=== PATIENT | female | born 1995 | race African-American/Black ===

== ENCOUNTER 2017-02-20 11:39 | Emergency (ER) | payer MEDICAID ==
[~2017-02-20] VITALS: Ht 149.9 cm; Wt 46.7 kg
[2017-02-20 11:50] VITALS: BP 160/108
[2017-02-20] MEDS ORDERED: Sodium Chloride 500ML 500 ML IVPB ONE (12:00)
--- NOTE | 2017-02-20 12:01 | Emergency Room Report ---
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 Patient states that she was hospitalized for palpitations and cyclic vomiting at [facility], at that time they did a CAT scan and she was not told of any abnormalities. Patient states that she was discharged to a facility which has one nurse (not necessarily a rehabilitation center), and states that she has had persistent nausea vomiting. Chest pain, left-sided, radiation to left hand , intermittently, lasting 5-10 minutes, associated with shortness of breath. Denies any fever or chills. Complains of epigastric abdominal pain. Patient also states that she has had DVT many years ago, is currently not in anticoagulation States that her symptoms is more so epigastric pain and intractable nausea Stated that she had been bedbound at [facility] but then was ambulatory, she states that she also had a CT of her chest done and they did not report any clots (Tahmina Vasquez M.D.) Allergies: Coded Allergies: AMOXICILLIN (Verified Allergy, Unknown, 02/20/17) PENICILLINS (Verified Allergy, Unknown, 02/20/17) Uncoded Allergies: ADHESIVE TAPE (Allergy, Unknown, 02/20/17) Patient History Past Medical History: see triage record Past Surgical History: none Pertinent Family History: none Last Menstrual Period: 01/24/17 Now: No : 1 Para: 0 Reviewed Nursing Documentation: PMH: Agreed, PSxH: Agreed (Tahmina Vasquez M.D. 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 Hx Gastrointestinal Problems: Yes - sickling vomiting (Tahmina Vasquez M.D.) Review of Systems All Other Systems: negative except mentioned in HPI (Tahmina Vasquez M.D.) Physical Exam Vital Signs Date Time Temp Pulse Resp B/P (MAP) Pulse Ox O2 Delivery O2 Flow Rate FiO2 02/20/17 11:27 98.1 138 20 158/81 94 Nasal Cannula 4.0 Sp02 EP Interpretation: reviewed, normal General Appearance: alert, GCS 15, non-toxic, mild distress Head: normocephalic, atraumatic Eyes: bilateral eye normal inspection, bilateral eye PERRL, bilateral eye EOMI ENT: normal ENT inspection, normal pharynx, normal voice, moist mucus membranes Neck: normal inspection, full range of motion, supple Respiratory: normal inspection, lungs clear, normal breath sounds, no respiratory distress, no retraction, no wheezing, speaking full sentences, chest symmetrical Cardiovascular #1: no edema, normal capillary refill, tachycardia Cardiovascular #2: 2+ radial (R), 2+ radial (L) Gastrointestinal: soft, non-distended, no guarding, other - Epigastric tenderness no guarding or rigidity Musculoskeletal: normal inspection, back normal, normal range of motion, non- tender Neurologic: normal inspection, alert, oriented x3, responsive, motor strength/ tone normal, sensory intact, normal gait, speech normal Psychiatric: normal inspection, judgement/insight normal, memory normal Skin: normal inspection, normal color, no rash, warm/dry, well hydrated, normal turgor (Retino,Clairose M.D.) Medical Decision Making Diagnostic Impression: Primary Impression: Chest pain Additional Impressions: Intractable nausea and vomiting Dyspnea ER Course 21-year-old female, 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 CHF vs. pneumonia vs. gastritis/GERD vs. gastroenteritis versus UTI At this time patient's abdomen is soft nontender nondistended will hold CAT scan at this time. Patient also had a recent CAT scan within the last 2 weeks at [facility] which patient was told there was no acute pathology Plan: IV access, obtain labs including troponin, EKG, CXR Zofran, a small IV fluid bolus ANTICIPATE TRANSFER TO [facility] ER course: Patient has remained tachycardic during ED stay, metoprolol 25 mg by mouth given Troponin is negative Chest x-ray is negative for pulmonary edema Patient states her baseline O2 sat is high 80s low 90s it has been around 92 I discussed with Nicolette Villagomez, nurse from [facility], working closely with with the patient's case, stated that she is currently finding a bed for patient to be transferred Disposition: Patient requires transfer to [facility] for higher level of care Due to patient's history and comorbidities, patient has increased risk of acute cardiac event. . Please note that this Emergency Department Report was dictated using [employer] musical instruments technology software, occasionally this can lead to erroneous entry secondary to interpretation by the dictation equipment. EKG Diagnostic Results EP Interpretation: Yes Rate: Tachycardic Rhythm: NSR ST Segments: T-wave inversions noted in 1 and aVL, left ventricular hypertrophy ASA given to patient: No Rhythm Strip EP Interpretation: Yes Rate: 130 Rhythm: NSR, no PVCs, no ectopy Chest X-ray CXR: Ordered: Yes 1 view Indication: Chest pain EP interpretation: Yes Interpretation: Status post postsurgical changes, no gross cardiomegaly, no pulmonary vascular congestion Impression: No acute disease Electronically signed by Tahmina Vasquez MD Signed out patient to Dr. Glass 21 yo F with ?hypoplastic L heart multiple surgeries p/w intractable nausea/ cycling vomiting recent DC from [facility] to be transferred to [facility] Laboratory Tests Test 02/20/17 12:20 White Blood Count 7.7 K/UL (4.8-10.8) Red Blood Count 6.42 M/UL (4.20-5.40) H Hemoglobin 17.1 G/DL (12.0-16.0) H Hematocrit 54.1 % (37.0-47.0) H Mean Corpuscular Volume 84 FL (80-99) Mean Corpuscular Hemoglobin 26.7 PG (27.0-31.0) L Mean Corpuscular Hemoglobin Concent 31.7 G/DL (32.0-36.0) L Red Cell Distribution Width 22.6 % (11.6-14.8) H Platelet Count 273 K/UL (150-450) Mean Platelet Volume 9.7 FL (6.5-10.1) Neutrophils (%) (Auto) 69.8 % (45.0-75.0) Lymphocytes (%) (Auto) 19.8 % (20.0-45.0) L Monocytes (%) (Auto) 7.3 % (1.0-10.0) Eosinophils (%) (Auto) 2.2 % (0.0-3.0) Basophils (%) (Auto) 0.9 % (0.0-2.0) Prothrombin Time 12.0 SEC (9.30-11.50) H Prothrombin Time INR 1.1 (0.9-1.1) PTT 27 SEC (23-33) Sodium Level 137 MMOL/L (136-145) Potassium Level 4.5 MMOL/L (3.5-5.1) Chloride Level 101 MMOL/L (98-107) Carbon Dioxide Level 26 MMOL/L (21-32) Anion Gap 10 mmol/L (5-15) Blood Urea Nitrogen 5 mg/dL (7-18) L Creatinine 0.8 MG/DL (0.55-1.30) Estimate Glomerular Filtration Rate > 60 mL/min (>60) Glucose Level 94 MG/DL (74-106) Calcium Level 10.0 MG/DL (8.5-10.1) Total Bilirubin 0.8 MG/DL (0.2-1.0) Aspartate Amino Transferase (AST) 34 U/L (15-37) Alanine Aminotransferase (ALT) 31 U/L (12-78) Alkaline Phosphatase 158 U/L (46-116) H Total Creatine Kinase 39 U/L (26-308) Creatine Kinase MB 0.7 NG/ML (0.0-3.6) Creatine Kinase MB Relative Index 1.7 Troponin I 0.023 ng/mL (0.000-0.056) Pro-B-Type Natriuretic Peptide 535 pg/mL (0-125) H Total Protein 8.0 G/DL (6.4-8.2) Albumin 3.7 G/DL (3.4-5.0) Globulin 4.3 g/dL Albumin/Globulin Ratio 0.9 (1.0-2.7) L Digoxin Level 0.6 NG/ML (0.9-2.0) L (Tahmina Vasquez M.D.) ER Course Please refer to the initial note for the history exam and presentation At this time [facility] did contact us back And notified us that unfortunately there were not able to take the patient. I spoke to RN Sahra who states that she was the one on the team that was taking care of the patient previously. Patient has been in the emergency room for several hours has done significantly better and at this time in order not to delay any further inpatient care Patient was admitted to the hospital Speaking to the patient at this time regarding the disposition patient states that she feels significantly better She has no chest pain, that her nausea has improved patient reports that she is on her way to [place] where all her medications are Patient also has medications at bedside from [facility] including digoxin, and metoprolol Patient is aware of the possible risk factors of leaving AGAINST MEDICAL ADVICE , including but not limited to cardiac arrest, possible Patient is awake and alert GCS 15 Aware of these potential risk factors and choosing to leave AGAINST MEDICAL ADVICE Labs Test 02/20/17 12:20 White Blood Count 7.7 K/UL (4.8-10.8) Red Blood Count 6.42 M/UL (4.20-5.40) Hemoglobin 17.1 G/DL (12.0-16.0) Hematocrit 54.1 % (37.0-47.0) Mean Corpuscular Volume 84 FL (80-99) Mean Corpuscular Hemoglobin 26.7 PG (27.0-31.0) Mean Corpuscular Hemoglobin Concent 31.7 G/DL (32.0-36.0) Red Cell Distribution Width 22.6 % (11.6-14.8) Platelet Count 273 K/UL (150-450) Mean Platelet Volume 9.7 FL (6.5-10.1) Neutrophils (%) (Auto) 69.8 % (45.0-75.0) Lymphocytes (%) (Auto) 19.8 % (20.0-45.0) Monocytes (%) (Auto) 7.3 % (1.0-10.0) Eosinophils (%) (Auto) 2.2 % (0.0-3.0) Basophils (%) (Auto) 0.9 % (0.0-2.0) Prothrombin Time 12.0 SEC (9.30-11.50) Prothromb Time International Ratio 1.1 (0.9-1.1) Activated Partial Thromboplast Time 27 SEC (23-33) Sodium Level 137 MMOL/L (136-145) Potassium Level 4.5 MMOL/L (3.5-5.1) Chloride Level 101 MMOL/L (98-107) Carbon Dioxide Level 26 MMOL/L (21-32) Anion Gap 10 mmol/L (5-15) Blood Urea Nitrogen 5 mg/dL (7-18) Creatinine 0.8 MG/DL (0.55-1.30) Estimat Glomerular Filtration Rate > 60 mL/min (>60) Glucose Level 94 MG/DL (74-106) Calcium Level 10.0 MG/DL (8.5-10.1) Total Bilirubin 0.8 MG/DL (0.2-1.0) Aspartate Amino Transf (AST/SGOT) 34 U/L (15-37) Alanine Aminotransferase (ALT/SGPT) 31 U/L (12-78) Alkaline Phosphatase 158 U/L (46-116) Total Creatine Kinase 39 U/L (26-308) Creatine Kinase MB 0.7 NG/ML (0.0-3.6) Creatine Kinase MB Relative Index 1.7 Troponin I 0.023 ng/mL (0.000-0.056) Pro-B-Type Natriuretic Peptide 535 pg/mL (0-125) Total Protein 8.0 G/DL (6.4-8.2) Albumin 3.7 G/DL (3.4-5.0) Globulin 4.3 g/dL Albumin/Globulin Ratio 0.9 (1.0-2.7) Digoxin Level 0.6 NG/ML (0.9-2.0) (KAROLYN GLASS D.O.) Rhythm Strip Diag. Results EP Interpretation: yes Rate: 102 Rhythm: NSR, no PVC's, no ectopy (KAROLYN GLASS D.O.) Chest X-Ray Diagnostic Results Chest X-Ray Diagnostic Results : Chest X-Ray Ordered: Yes # of Views/Limited/Complete: 1 View Indication: Chest Pain EP Interpretation: No Impression: Other - by radiology:Findings: The lungs and pleural spaces are clear. There are median sternotomy wires (KAROLYN GLASS D.O.) Last Vital Signs Date Time Temp Pulse Resp B/P (MAP) Pulse Ox O2 Delivery O2 Flow Rate FiO2 02/20/17 11:27 98.1 138 20 158/81 94 Nasal Cannula 4.0 (Tahmina Vasquez M.D.) Status: improved (KAROLYN GLASS D.O.) Disposition: AGAINST MEDICAL ADVICE Condition: Serious Referrals: NOT CHOSEN IPA/,REFERRING (PCP) Tahmina Vasquez M.D. Feb 20, 2017 12:01 KAROLYN GLASS D.O. Feb 20, 2017 16:59
[2017-02-20 12:52] LABS: BASOPHILS % (AUTO) 0.9 % (0.0-2.0); EOSINOPHILS % (AUTO) 2.2 % (0.0-3.0); LYMPHOCYTES % (AUTO) 19.8 % (20.0-45.0); MEAN CORPUSCULAR HEMOGLOBIN 26.7 PG (27.0-31.0); MEAN CORPUSCULAR HGB CONC 31.7 G/DL (32.0-36.0); MEAN CORPUSCULAR VOLUME 84 FL (80-99); MEAN PLATELET VOLUME 9.7 FL (6.5-10.1); MONOCYTES % (AUTO) 7.3 % (1.0-10.0); NEUTROPHILS % (AUTO) 69.8 % (45.0-75.0); PLATELET COUNT 273 K/UL (150-450); RED BLOOD COUNT 6.42 M/UL (4.20-5.40); RED CELL DISTRIBUTION WIDTH 22.6 % (11.6-14.8); WHITE BLOOD COUNT 7.7 K/UL (4.8-10.8)
[2017-02-20 12:59] LABS: INR 1.1 (0.9-1.1)
[2017-02-20 13:00] VITALS: BP 144/105
--- NOTE | 2017-02-20 13:00 | Diagnostic Imaging Report ---
Indication: Chest pain Technique: One view of the chest Comparison: none Findings: The lungs and pleural spaces are clear. There are median sternotomy sutures and clips. What appear to be vascular embolization coils are seen along the expected course of the left internal mammary artery. Normal heart size. Surgical clips also seen in the abdomen Impression: Findings as noted. No acute process
[2017-02-20 13:48] LABS: ALANINE AMINOTRANSFERASE 31 U/L (12-78); ALBUMIN/GLOBULIN RATIO 0.9 (1.0-2.7); ANION GAP 10 mmol/L (5-15); ASPARTATE AMINO TRANSFERASE 34 U/L (15-37); CARBON DIOXIDE 26 MMOL/L (21-32); CHLORIDE 101 MMOL/L (98-107); CKMB 0.7 NG/ML (0.0-3.6); CREATININE 0.8 MG/DL (0.55-1.30); DIGOXIN 0.6 NG/ML (0.9-2.0); GLOMERULAR FILTRATION RATE > 60 mL/min (>60); POTASSIUM 4.5 MMOL/L (3.5-5.1); SODIUM 137 MMOL/L (136-145)
[2017-02-20] MEDS ORDERED: Ketorolac 30mg Inj IV ONE (14:00)
[2017-02-20 14:30] VITALS: BP 118/97
[2017-02-20] MEDS ORDERED: fentaNYL 100 mcg/2 mL IV ONE (14:45)
[2017-02-20] MEDS ORDERED: Metoprolol 25mg tab ORAL ONE (15:15)
[2017-02-20] MEDS ORDERED: DIGOXIN ELIX0.125 MG GT (15:21)
[2017-02-20] MEDS ORDERED: AMIODARONE HCL100 MG ORAL (15:21)
[2017-02-20] MEDS ORDERED: ENALAPRIL MALE2.5 MG ORAL (15:21)
[2017-02-20] MEDS ORDERED: METOPROLOL SUCC25 MG ORAL (15:21)
[2017-02-20] MEDS ORDERED: FUROSEMIDE20 M1 ORAL (15:21)
[2017-02-20] MEDS ORDERED: FLECAINIDE ACET50 M1 PO (15:21)
[2017-02-20] MEDS ORDERED: ASPIRIN81 MG ORAL (15:21)
[2017-02-20 15:30] VITALS: BP 117/72
[2017-02-20 17:00] VITALS: BP 120/80
--- NOTE | 2017-02-22 13:32 | Cardiology Report ---
APPROVED REPORT EKG Measurement Heart [id number] ME [id number] Sinus tachycardia with short ME Possible Left atrial enlargement Left ventricular hypertrophy with repolarization abnormality Abnormal ECG
== END 2017-02-20 17:05 | disposition left against medical advice (07) ==
LOC: EDBD 11:39 → EMR 11:54
DX: R07.89 Other chest pain (principal); R11.2 Nausea with vomiting, unspecified; R06.00 Dyspnea, unspecified; R00.2 Palpitations; Z88.0 Allergy status to penicillin; Z98.890 Other specified postprocedural states
CPT/HCPCS: 36415; 71010; 80053; 80162; 82550; 82553; 83880; 84484; 85025; 85610; 85730; 93005; 96361; 96374; 96375; 99284; J1885; J2405; J3010